=== PATIENT | male | born 1985 | race Caucasian/White ===

== ENCOUNTER 2018-05-26 13:33 | Inpatient (IN) | payer MEDICAID, OTHER ==
[~2018-05-26] VITALS: Ht 182.9 cm; Wt 80.6 kg
[2018-05-26] MEDS ORDERED: NALT50TA PO (14:04)
[2018-05-26] MEDS ORDERED: BENA20TA9 (14:04)
[2018-05-26] MEDS ORDERED: ALPR-624 (14:04)
[2018-05-26] MEDS ORDERED: ONDA4TAB6 PO (14:04)
[2018-05-26] MEDS ORDERED: normal saline 1000ML IV soln IVB ONE ×2 (14:15→16:35)
[2018-05-26] MEDS ORDERED: ondansetron/PF 4mg/2ml inj IV ONE (14:15)
[2018-05-26 14:25] LABS: BASOPHILS % (AUTO) 0.2 % (0-1); EOSINOPHILS # (AUTO) 0.1 X10'3 (0-0.9); EOSINOPHILS % (AUTO) 0.9 % (0-6); HEMATOCRIT 48.3 % (42.0-52.0); LYMPHOCYTES # (AUTO) 0.8 X10'3 (1.1-4.8); LYMPHOCYTES % (AUTO) 8.8 % (21-51); MEAN CORPUSCULAR HEMOGLOBIN 31.6 PG (27.0-31.0); MEAN CORPUSCULAR HGB CONC 35.2 % (33.0-36.5); MEAN CORPUSCULAR VOLUME 89.7 FL (78-98); MONOCYTES # (AUTO) 1.5 X10'3 (0-0.9); MONOCYTES % (AUTO) 16.5 % (2-12); NEUTROPHILS # (AUTO) 6.7 X10'3 (1.8-7.7); NEUTROPHILS % (AUTO) 73.6 % (42-75); PLATELET COUNT 238 X10'3 (140-440); RED BLOOD COUNT 5.38 X10'6 (4.70-6.10); RED CELL DISTRIBUTION WIDTH 15.5 % (11.5-14.5); WHITE BLOOD COUNT 9.1 X10'3 (4.5-11.0)
[2018-05-26 14:41] LABS: ALANINE AMINOTRANSFERASE 236 U/L (12-78); ALBUMIN 3.7 G/DL (3.4-5.0); ALBUMIN/GLOBULIN RATIO 0.7 (1.1-1.5); ALKALINE PHOSPHATASE 71 IU/L (46-116); ANION GAP 26 (8-16); ASPARTATE AMINO TRANSFERASE 92 U/L (10-37); BILIRUBIN,TOTAL 0.7 MG/DL (0.1-1.0); BLOOD UREA NITROGEN 75 MG/DL (7-18); BUN/CREATININE RATIO 5.6 (5.4-32.0); CALCIUM 8.9 MG/DL (8.5-10.1); CHLORIDE 78 MMOL/L (99-107); CREATININE 13.32 MG/DL (0.60-1.10); GLUCOSE 97 MG/DL (70-104); POTASSIUM 3.5 MMOL/L (3.5-5.1); SODIUM 123 MMOL/L (135-145); TOTAL CARBON DIOXIDE 19.4 MMOL/L (24-32); eGFR 4 ML/MIN
[2018-05-26 14:48] LABS: TOTAL CELLS COUNTED 100
[2018-05-26 14:49] LABS: PLATELET ESTIMATE NORMAL; TOXIC GRANULATION 1+
[2018-05-26 14:50] LABS: ETHANOL < 0.010 GM/DL (0.0-0.010)
[2018-05-26 14:53] LABS: CLARITY,URINE TURBID (Clear); COLOR,URINE AMBER (Yellow); GLUCOSE, URINE NEGATIVE (Neg); KETONES,URINE TRACE mg/dl (Neg); LEUKOCYTE ESTERASE ,URINE TRACE (Neg); OCCULT BLOOD,URINE LARGE (Neg); PROTEIN,URINE 100 mg/dl (Neg)
[2018-05-26 14:55] LABS: NITRITES, URINE NEGATIVE (Neg); UA COLLECTION TYPE CLN CATCH MIDSTREAM; URINE AMPHETAMINE SCREEN NEGATIVE (Neg); URINE BARBITUATE SCREEN NEGATIVE (Neg); URINE BENZODIAZEPINES SCREEN POSITIVE (Neg); URINE CANNABINOID SCREEN NEGATIVE (Neg); URINE COCAINE SCREEN NEGATIVE (Neg); URINE METHADONE SCREEN NEGATIVE (Neg); URINE OPIATE SCREEN NEGATIVE (Neg); URINE PHENCYCLIDINE SCREEN NEGATIVE (Neg)
[2018-05-26 15:01] LABS: LIPASE 2921 U/L (73-393)
[2018-05-26 15:01] LABS: COARSE GRANULAR CAST 0-3 /LPF (NEGATIVE); HYALINE CASTS 0-3 /LPF (NEGATIVE); MUCUS STRANDS FEW /LPF (Neg); SQUAMOUS EPITHELIAL CELL,UR NONE SEEN /LPF (FEW)
[2018-05-26 15:05] LABS: BACTERIA,URINE FEW /HPF (Neg); RBC,URINE 20-30 /HPF (0-2); WBC,URINE 20-30 /HPF (0-4)
[2018-05-26] MEDS ORDERED: piperacillin/tazo 3.375gm/50ml 50 ML IV ONE (15:07)
[2018-05-26 15:15] LABS: RENAL CELLS, URINE MANY /HPF; TRANSITIONAL EPI CELLS,URINE FEW /HPF
[2018-05-26 15:16] LABS: AMORPHOUS URATES 1+
[2018-05-26 17:31] LABS: MAGNESIUM 1.9 MG/DL (1.5-2.4); PHOSPHORUS 11.8 MG/DL (2.3-4.5)
[2018-05-26] MEDS ORDERED: HYDROcodone/acetaminophen 5mg/325mg tablet PO PRN (17:45)
[2018-05-26] MEDS ORDERED: mag hydrox/Alum hydrox/simeth 30ml oral suspension PO PRN (17:45)
[2018-05-26] MEDS ORDERED: HYDROcodone/acetaminophen 10/325mg tab PO PRN (17:45)
[2018-05-26] MEDS ORDERED: metoclopramide 5 mg/ml inj IV PRN (17:45)
[2018-05-26] MEDS ORDERED: diphenhydrAMINE 25mg capsule PO PRN (17:45)
[2018-05-26] MEDS ORDERED: morphine 4 MG/ML inj SYRINge IV PRN ×2 (17:45)
[2018-05-26] MEDS ORDERED: bisacodyl 10mg suppository rectal RC PRN (17:45)
[2018-05-26] MEDS ORDERED: acetaminophen 650mg rectal suppository RC PRN (17:45)
[2018-05-26] MEDS ORDERED: acetaminophen 325mg tablet PO PRN ×2 (17:45)
[2018-05-26] MEDS ORDERED: diphenhydrAMINE 50 mg/ml inj IV PRN (17:45)
[2018-05-26] MEDS ORDERED: magnesium hydroxide 30ml (MOM) UD suspension PO PRN (17:45)
[2018-05-26] MEDS ORDERED: HYDROmorphone 1 mg/ml syringe IV PRN ×2 (17:45)
[2018-05-26] MEDS ORDERED: ondansetron/PF 4mg/2ml inj IV PRN (17:45)
[2018-05-26] MEDS ORDERED: haloperidol 5mg tablet PO PRN ×2 (17:50)
[2018-05-26] MEDS ORDERED: thiamine inj. 100 MG in normal saline 100ml IV soln 100 ML IV ONE (17:50)
[2018-05-26] MEDS: normal saline 1000ml 1,000 ML IV SCH (18:54)
[2018-05-26 19:12] LABS: HEMOGLOBIN A1C 5.5 % (4.5-6.2)
[2018-05-26] MEDS: docusate sod 100mg capsule PO SCH (20:00)
[2018-05-26 21:00] VITALS: BP 133/73
[2018-05-26] MEDS ORDERED: temazepam 15mg capsule PO PRN (21:00)
[2018-05-26] MEDS: piperacillin-tazo 2.25gm/50ml 50 ML IV SCH (21:32)
[2018-05-26] MEDS: heparin, porcine 5000 units/ml vial SQ SCH (21:35)
[2018-05-26 23:00] VITALS: BP 115/63
[2018-05-27 03:00] VITALS: BP 119/88
[2018-05-27] MEDS: normal saline 1000ml 1,000 ML IV SCH ×3 (04:25→23:45)
[2018-05-27 05:51] LABS: INR 1.1 INR; PROTHROMBIN TIME 11.1 SECONDS (9.0-12.0)
[2018-05-27 05:55] LABS: BASOPHILS % (AUTO) 0.2 % (0-1); EOSINOPHILS # (AUTO) 0.1 X10'3 (0-0.9); EOSINOPHILS % (AUTO) 1.4 % (0-6); HEMATOCRIT 37.2 % (42.0-52.0); HEMOGLOBIN 13.4 g/dl (14.0-17.9); LYMPHOCYTES % (AUTO) 12.8 % (21-51); MONOCYTES # (AUTO) 1.4 X10'3 (0-0.9); MONOCYTES % (AUTO) 18.3 % (2-12); NEUTROPHILS # (AUTO) 5.1 X10'3 (1.8-7.7); NEUTROPHILS % (AUTO) 67.3 % (42-75); PLATELET COUNT 190 X10'3 (140-440); RED BLOOD COUNT 4.18 X10'6 (4.70-6.10); RED CELL DISTRIBUTION WIDTH 15.5 % (11.5-14.5); WHITE BLOOD COUNT 7.6 X10'3 (4.5-11.0)
[2018-05-27 06:00] VITALS: BP 135/81
[2018-05-27 06:06] LABS: ALANINE AMINOTRANSFERASE 164 U/L (12-78); ALBUMIN 2.8 G/DL (3.4-5.0); ALBUMIN/GLOBULIN RATIO 0.7 (1.1-1.5); ALKALINE PHOSPHATASE 51 IU/L (46-116); AMYLASE 109 U/L (25-115); ANION GAP 20 (8-16); ASPARTATE AMINO TRANSFERASE 63 U/L (10-37); BILIRUBIN,TOTAL 0.7 MG/DL (0.1-1.0); BLOOD UREA NITROGEN 78 MG/DL (7-18); BUN/CREATININE RATIO 8.5 (5.4-32.0); CALCIUM 7.7 MG/DL (8.5-10.1); CHLORIDE 93 MMOL/L (99-107); CHOL/HDL RATIO 7.3 (0.00-4.99); CHOLESTEROL 183 MG/DL (0-200); CREATININE 9.15 MG/DL (0.60-1.10); GLUCOSE 80 MG/DL (70-104); HDL CHOLESTEROL 25 MG/DL (35-60); LDL CHOLESTEROL 107 MG/DL (50-100); MAGNESIUM 1.7 MG/DL (1.5-2.4); PHOSPHORUS 7.3 MG/DL (2.3-4.5); POTASSIUM 3.1 MMOL/L (3.5-5.1); SODIUM 131 MMOL/L (135-145); TOTAL CARBON DIOXIDE 18.3 MMOL/L (24-32); TOTAL PROTEIN 6.8 G/DL (6.4-8.2); TRIGLYCERIDES 364 MG/DL (20-135); eGFR 7 ML/MIN
[2018-05-27 06:29] LABS: LIPASE 2842 U/L (73-393)
[2018-05-27] MEDS: piperacillin-tazo 2.25gm/50ml 50 ML IV SCH ×2 (07:28→20:00)
[2018-05-27] MEDS: pantoprazole 40mg Tablet.DR PO SCH (07:28)
[2018-05-27] MEDS: heparin, porcine 5000 units/ml vial SQ SCH ×2 (07:28→20:00)
[2018-05-27] MEDS: docusate sod 100mg capsule PO SCH (08:00)
[2018-05-27] MEDS: folic acid inj. 2 MG, thiamine inj. 100 MG, MVI, adult No.4 with vit. K 10 ML in dextro... IV SCH ×4 (08:51)
[2018-05-27] MEDS: LORazepam 2 mg/ml vial IV PRN ×2 (09:24→19:25)
[2018-05-27] MEDS ORDERED: BENA20TA9 PO (09:53)
[2018-05-27] MEDS ORDERED: ALPR-624 PO (09:53)
[2018-05-27 11:00] VITALS: BP 122/77
[2018-05-27] MEDS: docusate sod 250mg capsule PO SCH ×2 (11:50→20:00)
[2018-05-27] MEDS: calcium acetate 667mg (PhosLO) capsule PO SCH ×2 (12:47→17:28)
[2018-05-27 13:03] LABS: TOTAL PROTEIN,URINE RANDOM 46.2 MG/DL
[2018-05-27 13:06] LABS: CLARITY,URINE CLEAR (Clear); COLOR,URINE YELLOW (Yellow); GLUCOSE, URINE NEGATIVE (Neg); KETONES,URINE NEGATIVE (Neg); LEUKOCYTE ESTERASE ,URINE NEGATIVE (Neg); NITRITES, URINE NEGATIVE (Neg); OCCULT BLOOD,URINE LARGE (Neg); PH,URINE 5.5 (4.8-8.0); PROTEIN,URINE 30 mg/dl (Neg); UROBILINOGEN,URINE 0.2 E.U/dL (0.2-1.0)
[2018-05-27 13:26] LABS: UA COLLECTION TYPE NON-SPECIFIED
[2018-05-27 13:39] LABS: CREATINE KINASE 291 U/L (39-308)
[2018-05-27 13:49] LABS: WBC,URINE 0-4 /HPF (0-4)
[2018-05-27 13:50] LABS: BACTERIA,URINE FEW /HPF (Neg); COARSE GRANULAR CAST 0-3 /LPF (NEGATIVE); HYALINE CASTS 0-3 /LPF (NEGATIVE); SQUAMOUS EPITHELIAL CELL,UR FEW /LPF (FEW)
[2018-05-27] MEDS ORDERED: ALPR-385 PO (14:27)
[2018-05-27] MEDS ORDERED: BENA20TA2 PO (14:27)
[2018-05-27 15:00] VITALS: BP 100/67
[2018-05-27] MEDS ORDERED: potassium chloride 8mEq ER tablet PO ONE (15:55)
[2018-05-27 19:00] VITALS: BP 126/70
[2018-05-27] MEDS: lactobacillus rhamnosus 10,000 MMU CELLS/CAPSULE PO SCH (20:00)
[2018-05-27] MEDS ORDERED: non-formulary drug (Ondansetron Hcl (Zofran) 1 TAB) PO SCH (20:00)
[2018-05-27 23:00] VITALS: BP 130/53
[2018-05-28 03:00] VITALS: BP 116/64
[2018-05-28 04:33] LABS: BASOPHILS % (AUTO) 0.3 % (0-1); EOSINOPHILS # (AUTO) 0.1 X10'3 (0-0.9); HEMATOCRIT 36.3 % (42.0-52.0); LYMPHOCYTES % (AUTO) 15.4 % (21-51); MEAN CORPUSCULAR HGB CONC 35.8 % (33.0-36.5); MEAN CORPUSCULAR VOLUME 89.5 FL (78-98); MEAN PLATELET VOLUME 7.6 FL (7.4-10.4); MONOCYTES # (AUTO) 1.3 X10'3 (0-0.9); MONOCYTES % (AUTO) 21.5 % (2-12); NEUTROPHILS # (AUTO) 3.8 X10'3 (1.8-7.7); NEUTROPHILS % (AUTO) 60.8 % (42-75); PLATELET COUNT 211 X10'3 (140-440); RED BLOOD COUNT 4.05 X10'6 (4.70-6.10); RED CELL DISTRIBUTION WIDTH 15.3 % (11.5-14.5); WHITE BLOOD COUNT 6.3 X10'3 (4.5-11.0)
[2018-05-28 04:39] LABS: INR 1.1 INR; PROTHROMBIN TIME 11.4 SECONDS (9.0-12.0)
[2018-05-28 04:57] LABS: ALANINE AMINOTRANSFERASE 274 U/L (12-78); ALBUMIN 2.8 G/DL (3.4-5.0); ALBUMIN/GLOBULIN RATIO 0.7 (1.1-1.5); ALKALINE PHOSPHATASE 52 IU/L (46-116); AMYLASE 159 U/L (25-115); ANION GAP 11 (8-16); ASPARTATE AMINO TRANSFERASE 163 U/L (10-37); BILIRUBIN,TOTAL 0.9 MG/DL (0.1-1.0); BLOOD UREA NITROGEN 56 MG/DL (7-18); BUN/CREATININE RATIO 19.9 (5.4-32.0); CALCIUM 8.9 MG/DL (8.5-10.1); CHLORIDE 106 MMOL/L (99-107); CREATININE 2.81 MG/DL (0.60-1.10); GLUCOSE 89 MG/DL (70-104); MAGNESIUM 2.1 MG/DL (1.5-2.4); PHOSPHORUS 3.7 MG/DL (2.3-4.5); POTASSIUM 4.2 MMOL/L (3.5-5.1); SODIUM 140 MMOL/L (135-145); TOTAL CARBON DIOXIDE 23.5 MMOL/L (24-32); TOTAL PROTEIN 6.8 G/DL (6.4-8.2); eGFR 26 ML/MIN
[2018-05-28 06:23] LABS: LIPASE 3685 U/L (73-393)
[2018-05-28 06:30] VITALS: BP 118/69
[2018-05-28] MEDS: docusate sod 250mg capsule PO SCH ×2 (08:00→19:35)
[2018-05-28] MEDS: naltrexone 50mg tablet PO SCH (08:02)
[2018-05-28] MEDS: calcium acetate 667mg (PhosLO) capsule PO SCH ×2 (08:02→13:43)
[2018-05-28] MEDS: pantoprazole 40mg Tablet.DR PO SCH (08:03)
[2018-05-28] MEDS: heparin, porcine 5000 units/ml vial SQ SCH ×2 (08:03→19:29)
[2018-05-28] MEDS: piperacillin-tazo 2.25gm/50ml 50 ML IV SCH (08:03)
[2018-05-28] MEDS: lactobacillus rhamnosus 10,000 MMU CELLS/CAPSULE PO SCH ×2 (08:03→19:29)
[2018-05-28 08:26] LABS: PLATELET ESTIMATE NORMAL; TOTAL CELLS COUNTED 100
[2018-05-28] MEDS: folic acid inj. 2 MG, thiamine inj. 100 MG, MVI, adult No.4 with vit. K 10 ML in dextro... IV SCH ×4 (09:11)
[2018-05-28] MEDS: normal saline 1000ml 1,000 ML IV SCH ×2 (09:45→19:28)
[2018-05-28] MEDS: LORazepam 1 MG tablet PO PRN ×3 (10:27→19:29)
[2018-05-28] MEDS: nicotine 21mg patch - 24 hr TD SCH (10:27)
[2018-05-28 11:00] VITALS: BP 139/76
[2018-05-28 15:00] VITALS: BP 153/96
[2018-05-28 18:00] VITALS: BP 137/90
[2018-05-28 22:00] VITALS: BP 137/78
[2018-05-29] MEDS: LORazepam 1 MG tablet PO PRN ×2 (00:06→04:56)
[2018-05-29 02:00] VITALS: BP 117/68
[2018-05-29 04:52] LABS: BASOPHILS % (AUTO) 0.3 % (0-1); EOSINOPHILS # (AUTO) 0.1 X10'3 (0-0.9); EOSINOPHILS % (AUTO) 2.1 % (0-6); HEMATOCRIT 35.1 % (42.0-52.0); HEMOGLOBIN 12.3 g/dl (14.0-17.9); LYMPHOCYTES # (AUTO) 1.3 X10'3 (1.1-4.8); LYMPHOCYTES % (AUTO) 23.1 % (21-51); MEAN CORPUSCULAR HEMOGLOBIN 31.6 PG (27.0-31.0); MEAN CORPUSCULAR VOLUME 90.3 FL (78-98); MEAN PLATELET VOLUME 7.5 FL (7.4-10.4); MONOCYTES % (AUTO) 17.4 % (2-12); NEUTROPHILS # (AUTO) 3.3 X10'3 (1.8-7.7); NEUTROPHILS % (AUTO) 57.1 % (42-75); PLATELET COUNT 245 X10'3 (140-440); RED BLOOD COUNT 3.89 X10'6 (4.70-6.10); RED CELL DISTRIBUTION WIDTH 15.4 % (11.5-14.5); WHITE BLOOD COUNT 5.8 X10'3 (4.5-11.0)
[2018-05-29] MEDS: normal saline 1000ml 1,000 ML IV SCH (04:55)
[2018-05-29 05:18] LABS: ALANINE AMINOTRANSFERASE 280 U/L (12-78); ALBUMIN 2.7 G/DL (3.4-5.0); ALBUMIN/GLOBULIN RATIO 0.7 (1.1-1.5); ALKALINE PHOSPHATASE 47 IU/L (46-116); AMYLASE 166 U/L (25-115); ANION GAP 10 (8-16); ASPARTATE AMINO TRANSFERASE 140 U/L (10-37); BILIRUBIN,TOTAL 0.8 MG/DL (0.1-1.0); BLOOD UREA NITROGEN 33 MG/DL (7-18); BUN/CREATININE RATIO 23.7 (5.4-32.0); CALCIUM 8.7 MG/DL (8.5-10.1); CHLORIDE 110 MMOL/L (99-107); CREATININE 1.39 MG/DL (0.60-1.10); GLUCOSE 84 MG/DL (70-104); MAGNESIUM 1.9 MG/DL (1.5-2.4); PHOSPHORUS 2.7 MG/DL (2.3-4.5); SODIUM 145 MMOL/L (135-145); TOTAL CARBON DIOXIDE 24.7 MMOL/L (24-32); TOTAL PROTEIN 6.4 G/DL (6.4-8.2); eGFR 58 ML/MIN
[2018-05-29 05:48] LABS: LIPASE 2954 U/L (73-393)
[2018-05-29 06:00] VITALS: BP 139/86
[2018-05-29] MEDS: docusate sod 250mg capsule PO SCH (06:45)
[2018-05-29] MEDS: naltrexone 50mg tablet PO SCH (07:38)
[2018-05-29] MEDS: nicotine 21mg patch - 24 hr TD SCH (07:38)
[2018-05-29] MEDS: lactobacillus rhamnosus 10,000 MMU CELLS/CAPSULE PO SCH (07:39)
[2018-05-29] MEDS: pantoprazole 40mg Tablet.DR PO SCH (07:40)
[2018-05-29] MEDS: heparin, porcine 5000 units/ml vial SQ SCH (07:42)
[2018-05-29] MEDS ORDERED: thiamine 100mg tablet PO SCH (08:00)
[2018-05-29] MEDS ORDERED: folic acid 1mg tablet PO SCH (08:00)
[2018-05-29] MEDS ORDERED: multivitamins, therapeutics tablet PO SCH (08:00)
[2018-05-29 11:00] VITALS: BP 143/79
[2018-05-29] MEDS ORDERED: FOLI1TAB16 PO (13:29)
[2018-05-29] MEDS ORDERED: PANT40TA4 PO (13:29)
[2018-05-29] MEDS ORDERED: THI100T PO (13:29)
== END 2018-05-29 15:00 | disposition home or self-care (01) | DRG 469 ==
LOC: ER 13:34 → ED HOLD 17:45 → PCU 3S 20:20
PROVIDERS: ADMIT Family Medicine; ATTEND Internal Medicine
DX: N17.9 Acute kidney failure, unspecified (principal); M62.82 Rhabdomyolysis; K85.20 Alcohol induced acute pancreatitis without necrosis or infection; K70.10 Alcoholic hepatitis without ascites; E87.1 Hypo-osmolality and hyponatremia; E86.0 Dehydration; F17.200 Nicotine dependence, unspecified, uncomplicated; F10.20 Alcohol dependence, uncomplicated; Y90.0 Blood alcohol level of less than 20 mg/100 ml; I10 Essential (primary) hypertension; E86.1 Hypovolemia; K52.9 Noninfective gastroenteritis and colitis, unspecified; N39.0 Urinary tract infection, site not specified; E87.6 Hypokalemia; Z88.0 Allergy status to penicillin
CPT/HCPCS: 36415; 74176; 80053; 80061; 80305; 80320; 81001; 82150; 82550; 82570; 83036; 83605; 83690; 83735; 83880; 84100; 84133; 84156; 84300; 84443; 85025; 85610; 87040; 87070; 87088; 96361; 96365; 96366; 96375; 99291; A6250; J1644; J2060; J2405; J2543; J3411; J3490; J7030; J7060

== ENCOUNTER 2021-04-10 14:44 | Inpatient (IN) | payer MEDICAID, OTHER ==
[~2021-04-10] VITALS: Ht 182.9 cm; Wt 79.5 kg
[~2021-04-10 14:44] MED LIST: ALPR-385 PO; FOLI1TAB16 PO; NALT50TA PO; PANT40TA54 PO; THI100T PO
[2021-04-10 15:16] LABS: HEMATOCRIT 43.8 % (42.0-52.0); HEMOGLOBIN 14.9 g/dl (14.0-17.9); MEAN CORPUSCULAR HEMOGLOBIN 35.1 PG (27.0-31.0); MEAN CORPUSCULAR VOLUME 103.3 FL (78-98); PLATELET COUNT 167 X10'3 (140-440); RED BLOOD COUNT 4.24 X10'6 (4.70-6.10); RED CELL DISTRIBUTION WIDTH 15.6 % (11.5-14.5); WHITE BLOOD COUNT 7.1 X10'3 (4.5-11.0)
[2021-04-10 15:39] LABS: TOTAL CELLS COUNTED 100
[2021-04-10 15:40] LABS: PLATELET ESTIMATE NORMAL
[2021-04-10 15:45] LABS: ALKALINE PHOSPHATASE 334 IU/L (46-116); ANION GAP 12 (8-16); BILIRUBIN,TOTAL 16.8 MG/DL (0.1-1.0); BLOOD UREA NITROGEN 16 MG/DL (7-18); BUN/CREATININE RATIO 18.2 (5.4-32.0); CALCIUM 8.1 MG/DL (8.5-10.1); CREATININE 0.88 MG/DL (0.60-1.10); ETHANOL < 0.010 GM/DL (0.0-0.010); eGFR > 90 ML/MIN
[2021-04-10 15:52] LABS: ACETAMINOPHEN < 2.0 UG/ML (10-30)
[2021-04-10 16:21] LABS: GLUCOSE 125 MG/DL (70-104); POTASSIUM 3.3 MMOL/L (3.5-5.1); TOTAL CARBON DIOXIDE 25.4 MMOL/L (24-32); TOTAL PROTEIN 5.6 G/DL (6.4-8.2)
[2021-04-10 16:23] LABS: CLARITY,URINE CLOUDY (Clear); COLOR,URINE AMBER (Yellow)
[2021-04-10 16:24] LABS: UA COLLECTION TYPE CLN CATCH MIDSTREAM
[2021-04-10 16:30] LABS: MUCUS STRANDS MANY /LPF (Neg); SQUAMOUS EPITHELIAL CELL,UR FEW /LPF (FEW)
[2021-04-10 16:31] LABS: RENAL CELLS, URINE MANY /HPF; TRANSITIONAL EPI CELLS,URINE MODERATE /HPF
[2021-04-10 16:32] LABS: CHLORIDE 87 MMOL/L (99-107); SODIUM 123 MMOL/L (135-145)
[2021-04-10 16:32] LABS: CELLULAR CAST 0-4 /LPF (NEGATIVE); COARSE GRANULAR CAST 0-3 /LPF (NEGATIVE)
[2021-04-10 16:33] LABS: FINE GRANULAR CAST 0-3 /LPF (NEGATIVE)
[2021-04-10 16:34] LABS: WBC,URINE 0-4 /HPF (0-4)
[2021-04-10 16:35] LABS: BACTERIA,URINE FEW /HPF (Neg)
[2021-04-10 16:46] LABS: ALBUMIN 2.1 G/DL (3.4-5.0); ALBUMIN/GLOBULIN RATIO 0.6 (1.1-1.5)
[2021-04-10 16:49] LABS: ALANINE AMINOTRANSFERASE 157 U/L (12-78); ASPARTATE AMINO TRANSFERASE 233 U/L (10-37)
--- NOTE | 2021-04-10 17:00 | NUR ---
Informed ER doctor patient has elevated B/P has not taken his blood pressure medications for 4 days. Potassium is 3.3 requested replacement.
[2021-04-10] MEDS ORDERED: potassium Cl 20 mEq SR tablet PO STA (17:16)
--- NOTE | 2021-04-10 17:17 | NUR ---
PARESH GILBERT PT'S MOTHER [phone]
[2021-04-10] MEDS ORDERED: normal saline 1000ml 1,000 ML IV ONE (17:20)
[2021-04-10] MEDS ORDERED: OMEP-50 PO (17:38)
[2021-04-10] MEDS ORDERED: BENA10TA75 PO (17:38)
[2021-04-10] MEDS ORDERED: HYDR50TA65 PO (17:38)
[2021-04-10] MEDS ORDERED: potassium Cl 40MEQ/1/2NS 520ml 520 ML IV PRN ×2 (17:50)
[2021-04-10] MEDS ORDERED: LORazepam 2 mg/ml vial IV PRN (17:50)
[2021-04-10] MEDS ORDERED: haloperidol lactate 5mg/ml inj IM PRN (17:50)
[2021-04-10] MEDS ORDERED: thiamine 100mg/ml 2ml inj. IV ONE (17:50)
[2021-04-10] MEDS ORDERED: magnesium 4gm in 100ml NS 100 ML IV PRN (17:50)
[2021-04-10] MEDS ORDERED: dextrose 50%-water 50ml dispensing syringe IV PRN (17:50)
[2021-04-10] MEDS ORDERED: morphine 2 MG/ML inj. syringe IV PRN ×2 (17:50)
[2021-04-10] MEDS ORDERED: potassium Cl 20 mEq SR tablet PO PRN ×2 (17:50)
[2021-04-10] MEDS ORDERED: acetaminophen 325mg tablet PO PRN (17:50)
[2021-04-10] MEDS ORDERED: LORazepam 1 MG tablet PO PRN (17:50)
[2021-04-10] MEDS ORDERED: mag hydrox/Alum hydrox/simeth 30ml oral suspension PO PRN (17:50)
[2021-04-10] MEDS ORDERED: haloperidol 5mg tablet PO PRN (17:50)
[2021-04-10] MEDS ORDERED: ondansetron/PF 4mg/2ml inj IV PRN (17:50)
[2021-04-10] MEDS ORDERED: magnesium 2GM in 50ml NS 50 ML IV PRN (17:50)
[2021-04-10] MEDS ORDERED: magnesium Cl slow-release 64mg tablet PO PRN (17:50)
[2021-04-10] MEDS ORDERED: magnesium hydroxide 30ml (MOM) UD suspension PO PRN (17:50)
--- NOTE | 2021-04-10 17:59 | NUR ---
Patient's Mother Leonie Kendrick [phone] Father Ambrocio Andrews Sr. [phone] Only wants family to have information. No one else
[2021-04-10] MEDS: normal saline 1000ml 1,000 ML IV SCH (18:34)
[2021-04-10 18:44] LABS: AMYLASE 37 U/L (25-115); HDL CHOLESTEROL 12 MG/DL (35-60); LIPASE 630 U/L (73-393)
[2021-04-10 18:46] LABS: LDL CHOLESTEROL 757 MG/DL (50-100); TRIGLYCERIDES 1737 MG/DL (20-135)
[2021-04-10] MEDS: K and/or MAG REPLACEMENT MC SCH (20:06)
[2021-04-10] MEDS: lisinopril 5mg tablet PO SCH (20:07)
--- NOTE | 2021-04-10 20:11 | NUR ---
Patient ambulatory to and from bathroom with steady gait. States still feels slightly dizzy.
[2021-04-10 20:15] LABS: CHOL/HDL RATIO 67.5 (0.00-4.99); CHOLESTEROL 810 MG/DL (0-200)
[2021-04-10] MEDS: diatr meglu/diatrizoate 30ml oral sol.-(3 dose) bottle PO SCH (21:16)
--- NOTE | 2021-04-11 01:27 | NUR ---
Patient ambulatory to and from bathroom with steady gait.
[2021-04-11 03:27] LABS: RED BLOOD COUNT 3.72 X10'6 (4.70-6.10); WHITE BLOOD COUNT 5.6 X10'3 (4.5-11.0)
[2021-04-11 03:28] LABS: HEMATOCRIT 38.4 % (42.0-52.0); MEAN CORPUSCULAR HEMOGLOBIN 34.8 PG (27.0-31.0); MEAN CORPUSCULAR HGB CONC 33.8 g/dL (33.0-36.5); MEAN CORPUSCULAR VOLUME 103.1 FL (78-98); PLATELET COUNT 125 X10'3 (140-440); RED CELL DISTRIBUTION WIDTH 15.5 % (11.5-14.5)
[2021-04-11 03:44] LABS: ALBUMIN 1.8 G/DL (3.4-5.0); ALKALINE PHOSPHATASE 288 IU/L (46-116); ANION GAP 8 (8-16); BILIRUBIN,TOTAL 15.9 MG/DL (0.1-1.0); BLOOD UREA NITROGEN 13 MG/DL (7-18); BUN/CREATININE RATIO 17.1 (5.4-32.0); CALCIUM 8.1 MG/DL (8.5-10.1); CHLORIDE 93 MMOL/L (99-107); CREATININE 0.76 MG/DL (0.60-1.10); MAGNESIUM 1.6 MG/DL (1.5-2.4); SODIUM 127 MMOL/L (135-145); eGFR > 90 ML/MIN
[2021-04-11 04:05] LABS: ALANINE AMINOTRANSFERASE 114 U/L (12-78); ASPARTATE AMINO TRANSFERASE 188 U/L (10-37)
[2021-04-11 04:10] LABS: ALBUMIN/GLOBULIN RATIO 0.6 (1.1-1.5); GLUCOSE 100 MG/DL (70-104); POTASSIUM 3.8 MMOL/L (3.5-5.1); TOTAL PROTEIN 4.9 G/DL (6.4-8.2)
[2021-04-11 04:37] LABS: PLATELET ESTIMATE DECREASED; TOTAL CELLS COUNTED 100
[2021-04-11 04:38] LABS: STOMATOCYTES 3+
[2021-04-11] MEDS: normal saline 1000ml 1,000 ML IV SCH ×3 (05:00→20:35)
[2021-04-11] MEDS: diatr meglu/diatrizoate 30ml oral sol.-(3 dose) bottle PO SCH ×2 (07:22→09:57)
--- NOTE | 2021-04-11 07:42 | NUR ---
REPORT ATTEMPTED, ASSIGNED RN EARL CURRENTLY UNAVAILABLE.
[2021-04-11 07:55] LABS: PARTIAL THROMBOPLASTIN TIME 30 SECONDS (22-32)
[2021-04-11] MEDS: K and/or MAG REPLACEMENT MC SCH ×2 (08:00→20:00)
[2021-04-11] MEDS: folic acid 1mg tablet PO SCH (08:44)
[2021-04-11] MEDS: atorvastatin 20mg tablet PO SCH (08:44)
[2021-04-11] MEDS: thiamine 100mg tablet PO SCH (08:45)
[2021-04-11] MEDS: multivitamins, therapeutics tablet PO SCH (08:45)
[2021-04-11 09:47] VITALS: BP 157/100
[2021-04-11] MEDS ORDERED: iohexol 300mg/ml 100ml inj. ONE (09:50)
[2021-04-11] MEDS ORDERED: sincalide inj 1.6 MCG in normal saline 100ml IV soln 100 ML IV PRN (12:45)
[2021-04-11 18:00] VITALS: BP 131/91
--- NOTE | 2021-04-11 18:30 | NUR ---
gave report to regis robledo
[2021-04-11] MEDS ORDERED: zolpidem 5mg tablet PO PRN (20:30)
[2021-04-11] MEDS: lisinopril 5mg tablet PO SCH (20:36)
[2021-04-11 22:00] VITALS: BP 140/84
[2021-04-12 06:00] VITALS: BP 134/96
--- NOTE | 2021-04-12 06:15 | NUR ---
received report from regis robledo
[2021-04-12 06:38] LABS: MEAN PLATELET VOLUME 8.9 FL (7.4-10.4); PLATELET COUNT 149 X10'3 (140-440); WHITE BLOOD COUNT 5.9 X10'3 (4.5-11.0)
[2021-04-12 06:40] LABS: HEMATOCRIT 36.6 % (42.0-52.0); HEMOGLOBIN 12.5 g/dl (14.0-17.9); MEAN CORPUSCULAR HEMOGLOBIN 35.1 PG (27.0-31.0); MEAN CORPUSCULAR VOLUME 103.3 FL (78-98); RED BLOOD COUNT 3.55 X10'6 (4.70-6.10); RED CELL DISTRIBUTION WIDTH 15.1 % (11.5-14.5)
[2021-04-12 06:46] LABS: PARTIAL THROMBOPLASTIN TIME 26 SECONDS (22-32)
[2021-04-12 07:08] LABS: ALANINE AMINOTRANSFERASE 143 U/L (12-78); ALBUMIN 1.8 G/DL (3.4-5.0); ALKALINE PHOSPHATASE 305 IU/L (46-116); ANION GAP 9 (8-16); BILIRUBIN,TOTAL 20.3 MG/DL (0.1-1.0); BLOOD UREA NITROGEN 10 MG/DL (7-18); CHLORIDE 94 MMOL/L (99-107); MAGNESIUM 1.8 MG/DL (1.5-2.4); SODIUM 128 MMOL/L (135-145); TOTAL CARBON DIOXIDE 25.2 MMOL/L (24-32)
[2021-04-12 07:11] LABS: ALBUMIN/GLOBULIN RATIO 0.6 (1.1-1.5); ASPARTATE AMINO TRANSFERASE 226 U/L (10-37); BUN/CREATININE RATIO 13.9 (5.4-32.0); CREATININE 0.72 MG/DL (0.60-1.10); GLUCOSE 88 MG/DL (70-104); POTASSIUM 3.7 MMOL/L (3.5-5.1); TOTAL PROTEIN 4.9 G/DL (6.4-8.2); eGFR > 90 ML/MIN
[2021-04-12 07:24] LABS: TOTAL CELLS COUNTED 100
[2021-04-12 07:25] LABS: PLATELET ESTIMATE NORMAL
[2021-04-12 07:26] LABS: ANISOCYTOSIS 1+; SPHEROCYTES 1+; TARGET CELLS 2+
[2021-04-12 07:27] LABS: LARGE PLATELETS FEW; SCHISTOCYTES FEW
[2021-04-12] MEDS: K and/or MAG REPLACEMENT MC SCH (08:00)
[2021-04-12] MEDS: atorvastatin 20mg tablet PO SCH (08:01)
[2021-04-12] MEDS: folic acid 1mg tablet PO SCH (08:01)
[2021-04-12] MEDS: multivitamins, therapeutics tablet PO SCH (08:02)
[2021-04-12] MEDS: thiamine 100mg tablet PO SCH (08:02)
[2021-04-12 10:00] VITALS: BP 132/91
[2021-04-12] MEDS ORDERED: MEP5T PO (10:38)
[2021-04-12] MEDS ORDERED: MULT-25 PO (10:38)
[2021-04-12] MEDS ORDERED: thiamine tablet PO (10:38)
[2021-04-12] MEDS ORDERED: folic acid tablet PO (10:38)
--- NOTE | 2021-04-12 11:05 | NUR ---
pt d/c with instructions, understanding of instructions and w/all belongings walking out to private vehicle to go home and f/u w/pcp
[2021-04-12 15:48] LABS: HBSAG SCREEN Negative (Negative); HEP A AB, IGM Negative (Negative); HEPATITIS C ANTIBODY <0.1 s/co ratio (0.0-0.9)
== END 2021-04-12 11:05 | disposition home or self-care (01) | DRG 442 ==
LOC: ER 14:45 → ED HOLD 17:46 → ORTHO 4S 04-11 08:20
PROVIDERS: ADMIT Family Medicine; ATTEND Family Medicine
DX: B17.9 Acute viral hepatitis, unspecified (principal); E72.20 Disorder of urea cycle metabolism, unspecified; E87.1 Hypo-osmolality and hyponatremia; D69.6 Thrombocytopenia, unspecified; E78.1 Pure hyperglyceridemia; E78.5 Hyperlipidemia, unspecified; E87.6 Hypokalemia; E88.09 Other disorders of plasma-protein metabolism, not elsewhere classified; F10.20 Alcohol dependence, uncomplicated; F41.9 Anxiety disorder, unspecified; I10 Essential (primary) hypertension; I16.0 Hypertensive urgency; K76.0 Fatty (change of) liver, not elsewhere classified; K82.8 Other specified diseases of gallbladder; T38.0X5A Adverse effect of glucocorticoids and synthetic analogues, initial encounter; Z72.0 Tobacco use; Z88.0 Allergy status to penicillin
CPT/HCPCS: 36415; 71045; 74178; 76700; 78226; 80053; 80061; 80074; 80320; 80329; 81001; 82140; 82150; 82948; 83690; 83735; 83880; 84132; 84484; 85007; 85025; 85610; 85730; 87081; 93005; 99285; A9537; G0378; J2060; J3411; J7030; Q9963; Q9967

== ENCOUNTER 2021-04-24 14:31 | Emergency (ER) | payer OTHER ==
[~2021-04-24] VITALS: Ht 182.9 cm; Wt 70.0 kg
[~2021-04-24 14:31] MED LIST changes: -ALPR-385 PO; +BENA10TA75 PO; -FOLI1TAB16 PO; +HYDR50TA65 PO; +MEP5T PO; +MULT-25 PO; -NALT50TA PO; +OMEP-50 PO; -PANT40TA54 PO; -THI100T PO; +folic acid tablet PO; +thiamine tablet PO
[2021-04-24 16:24] LABS: HEMATOCRIT 28.1 % (42.0-52.0); HEMOGLOBIN 9.7 g/dl (14.0-17.9); MEAN CORPUSCULAR HEMOGLOBIN 35.2 PG (27.0-31.0); MEAN CORPUSCULAR HGB CONC 34.7 g/dL (33.0-36.5); MEAN CORPUSCULAR VOLUME 101.4 FL (78-98); MEAN PLATELET VOLUME 7.1 FL (7.4-10.4); PLATELET COUNT 831 X10'3 (140-440); RED BLOOD COUNT 2.77 X10'6 (4.70-6.10); RED CELL DISTRIBUTION WIDTH 14.5 % (11.5-14.5)
[2021-04-24 16:28] LABS: ALANINE AMINOTRANSFERASE 143 U/L (12-78); ALBUMIN 2.6 G/DL (3.4-5.0); ALKALINE PHOSPHATASE 264 IU/L (46-116); ANION GAP 9 (8-16); ASPARTATE AMINO TRANSFERASE 118 U/L (10-37); BILIRUBIN,TOTAL 6.3 MG/DL (0.1-1.0); BLOOD UREA NITROGEN 8 MG/DL (7-18); BUN/CREATININE RATIO 10.4 (5.4-32.0); CHLORIDE 99 MMOL/L (99-107); CREATININE 0.77 MG/DL (0.60-1.10); GLUCOSE 105 MG/DL (70-104); POTASSIUM 3.9 MMOL/L (3.5-5.1); SODIUM 134 MMOL/L (135-145); TOTAL CARBON DIOXIDE 25.8 MMOL/L (24-32); eGFR > 90 ML/MIN
[2021-04-24 16:31] LABS: WHITE BLOOD COUNT 10.4 X10'3 (4.5-11.0)
[2021-04-24 16:35] LABS: PLATELET ESTIMATE INCREASED; TOTAL CELLS COUNTED 100
[2021-04-24 16:36] LABS: POLYCHROMASIA 1+
[2021-04-24 16:38] LABS: ROULEAUX 1+; SPHEROCYTES FEW; STOMATOCYTES 1+
[2021-04-24 16:46] LABS: ALBUMIN/GLOBULIN RATIO 0.6 (1.1-1.5); TOTAL PROTEIN 7.3 G/DL (6.4-8.2)
[2021-04-24 16:56] LABS: PARTIAL THROMBOPLASTIN TIME 26 SECONDS (22-32)
[2021-04-24] MEDS ORDERED: folic acid/vitamin B complex w/vitamin C 0.8mg tablet PO ONE (17:50)
[2021-04-24 18:24] VITALS: BP 115/74
== END 2021-04-24 18:26 | disposition home or self-care (01) ==
LOC: ER 14:32
DX: D53.9 Nutritional anemia, unspecified (principal); E80.6 Other disorders of bilirubin metabolism; R42 Dizziness and giddiness; R51.9 Headache, unspecified; R11.0 Nausea; I10 Essential (primary) hypertension; F17.220 Nicotine dependence, chewing tobacco, uncomplicated; Z72.89 Other problems related to lifestyle; Z79.899 Other long term (current) drug therapy
CPT/HCPCS: 36415; 71045; 80053; 82140; 82607; 83880; 85007; 85025; 85610; 85730; 99284

== ENCOUNTER 2021-09-27 20:10 | Inpatient (IN) | payer MEDICAID ==
[~2021-09-27] VITALS: Ht 182.9 cm; Wt 79.5 kg
[2021-09-27 21:24] LABS: BASOPHILS % (AUTO) 0.4 % (0-1); EOSINOPHILS % (AUTO) 0 % (0-6); HEMATOCRIT 37.3 % (42.0-52.0); HEMOGLOBIN 13.3 g/dl (14.0-17.9); LYMPHOCYTES # (AUTO) 0.5 X10'3 (1.1-4.8); LYMPHOCYTES % (AUTO) 8.6 % (21-51); MEAN CORPUSCULAR HEMOGLOBIN 30.2 PG (27.0-31.0); MEAN CORPUSCULAR HGB CONC 35.5 g/dL (33.0-36.5); MEAN PLATELET VOLUME 8.2 FL (7.4-10.4); MONOCYTES # (AUTO) 0.6 X10'3 (0-0.9); MONOCYTES % (AUTO) 10.2 % (2-12); NEUTROPHILS # (AUTO) 4.7 X10'3 (1.8-7.7); NEUTROPHILS % (AUTO) 80.8 % (42-75); PLATELET COUNT 96 X10'3 (140-440); RED BLOOD COUNT 4.39 X10'6 (4.70-6.10); RED CELL DISTRIBUTION WIDTH 13.8 % (11.5-14.5); WHITE BLOOD COUNT 5.8 X10'3 (4.5-11.0)
[2021-09-27 21:33] LABS: ALANINE AMINOTRANSFERASE 218 U/L (12-78); ALBUMIN 3.5 G/DL (3.4-5.0); ALBUMIN/GLOBULIN RATIO 0.8 (1.1-1.5); ALKALINE PHOSPHATASE 81 IU/L (46-116); ANION GAP 21 (8-16); ASPARTATE AMINO TRANSFERASE 267 U/L (10-37); BILIRUBIN,TOTAL 2.8 MG/DL (0.1-1.0); BLOOD UREA NITROGEN 24 MG/DL (7-18); BUN/CREATININE RATIO 22.6 (5.4-32.0); CALCIUM 9.4 MG/DL (8.5-10.1); CHLORIDE 82 MMOL/L (99-107); CREATININE 1.06 MG/DL (0.60-1.10); GLUCOSE 124 MG/DL (70-104); LIPASE 764 U/L (73-393); POTASSIUM 3.4 MMOL/L (3.5-5.1); SODIUM 127 MMOL/L (135-145); TOTAL CARBON DIOXIDE 24.4 MMOL/L (24-32); TOTAL PROTEIN 7.7 G/DL (6.4-8.2); eGFR 78 ML/MIN
[2021-09-27 22:02] LABS: LARGE PLATELETS FEW; PLATELET ESTIMATE DECREASED
[2021-09-27] MEDS ORDERED: magnesium oxide 400mg tablet PO ONE (22:20)
[2021-09-27] MEDS ORDERED: thiamine 100mg tablet PO ONE (22:20)
[2021-09-27] MEDS ORDERED: famotidine/PF 10 mg/ml inj IV ONE (22:20)
[2021-09-27] MEDS ORDERED: phenobarbital inj 260 MG in normal saline 100ml IV soln 100 ML IV ONE (22:20)
[2021-09-27] MEDS ORDERED: octreotide inj. 1,250 MCG in normal saline 250ml IV soln 243.75 ML IV ONE (22:20)
[2021-09-27] MEDS ORDERED: ondansetron/PF 4mg/2ml inj IV ONE (22:20)
[2021-09-27] MEDS ORDERED: normal saline 1000ML IV soln IV ONE (22:20)
[2021-09-27] MEDS ORDERED: pantoprazole IV 40 MG in normal saline 100ml IV soln 100 ML IV ONE (22:23)
[2021-09-27] MEDS ORDERED: pantoprazole 40MG/NS 100ML BAG 100 ML IV ONE (22:25)
[2021-09-27 22:34] LABS: ETHANOL < 0.010 GM/DL (0.0-0.010); MAGNESIUM 1.8 MG/DL (1.5-2.4)
[2021-09-27 22:39] LABS: BASOPHILS % (AUTO) 0.2 % (0-1); EOSINOPHILS % (AUTO) 0 % (0-6); HEMATOCRIT 36.5 % (42.0-52.0); LYMPHOCYTES # (AUTO) 0.5 X10'3 (1.1-4.8); LYMPHOCYTES % (AUTO) 7.8 % (21-51); MEAN CORPUSCULAR HEMOGLOBIN 30.1 PG (27.0-31.0); MEAN CORPUSCULAR HGB CONC 35.7 g/dL (33.0-36.5); MEAN CORPUSCULAR VOLUME 84.2 FL (78-98); MEAN PLATELET VOLUME 8.1 FL (7.4-10.4); MONOCYTES # (AUTO) 0.9 X10'3 (0-0.9); MONOCYTES % (AUTO) 14.1 % (2-12); NEUTROPHILS % (AUTO) 77.9 % (42-75); PLATELET COUNT 95 X10'3 (140-440); RED BLOOD COUNT 4.33 X10'6 (4.70-6.10); RED CELL DISTRIBUTION WIDTH 13.7 % (11.5-14.5); WHITE BLOOD COUNT 6.4 X10'3 (4.5-11.0)
[2021-09-27 22:41] LABS: PARTIAL THROMBOPLASTIN TIME 25 SECONDS (22-32)
[2021-09-27 23:12] LABS: LARGE PLATELETS FEW; PLATELET ESTIMATE DECREASED
[2021-09-27] MEDS ORDERED: phenobarbital inj 130 MG in normal saline 100ml IV soln 100 ML IV ONE (23:20)
[2021-09-28] MEDS ORDERED: dextrose 50%-water 50ml dispensing syringe IV PRN (00:20)
[2021-09-28] MEDS ORDERED: acetaminophen 650mg rectal suppository RC PRN (00:20)
[2021-09-28] MEDS ORDERED: magnesium hydroxide 30ml (MOM) UD suspension PO PRN (00:20)
[2021-09-28] MEDS ORDERED: ondansetron 4mg rapidly disintigrating tab PO PRN (00:20)
[2021-09-28] MEDS ORDERED: potassium CL 10mEq/100ml bag 100 ML IV PRN (00:20)
[2021-09-28] MEDS ORDERED: potassium Cl 20 mEq SR tablet PO PRN ×2 (00:20)
[2021-09-28] MEDS ORDERED: magnesium 4gm in 100ml NS 100 ML IV PRN (00:20)
[2021-09-28] MEDS ORDERED: acetaminophen 325mg tablet PO PRN ×2 (00:20)
[2021-09-28] MEDS ORDERED: HYDROmorphone inj. 0.5 MG/0.5 ML DISP.SYRIN IV PRN (00:20)
[2021-09-28] MEDS ORDERED: HYDROcodone/acetaminophen 10/325mg tab PO PRN (00:20)
[2021-09-28] MEDS ORDERED: haloperidol 5mg tablet PO PRN (00:20)
[2021-09-28] MEDS ORDERED: morphine 2 MG/ML inj. syringe IV PRN ×2 (00:20)
[2021-09-28] MEDS ORDERED: potassium Cl 20mEq in NS 1,000 ML IV SCH (00:20)
[2021-09-28] MEDS ORDERED: diphenhydrAMINE 25mg capsule PO PRN (00:20)
[2021-09-28] MEDS ORDERED: mag hydrox/Alum hydrox/simeth 30ml oral suspension PO PRN (00:20)
[2021-09-28] MEDS ORDERED: magnesium Cl slow-release 64mg tablet PO PRN (00:20)
[2021-09-28] MEDS ORDERED: haloperidol lactate 5mg/ml inj IM PRN (00:20)
[2021-09-28] MEDS ORDERED: diphenhydrAMINE 50 mg/ml inj IV PRN (00:20)
[2021-09-28] MEDS ORDERED: ondansetron/PF 4mg/2ml inj IV PRN (00:20)
[2021-09-28] MEDS ORDERED: magnesium 2GM in 50ml NS 50 ML IV PRN (00:20)
[2021-09-28] MEDS ORDERED: HYDROmorphone/PF 0.2 MG/ML SYRINGE IV PRN (00:20)
[2021-09-28] MEDS ORDERED: HYDROcodone/acetaminophen 5mg/325mg tablet PO PRN (00:20)
[2021-09-28] MEDS ORDERED: LORazepam 2 mg/ml vial IV PRN (00:20)
[2021-09-28] MEDS ORDERED: bisacodyl 10mg suppository rectal RC PRN (00:20)
[2021-09-28 01:00] VITALS: BP 154/100
[2021-09-28] MEDS ORDERED: pantoprazole 40MG/NS 100ML BAG 100 ML IV ONE (01:00)
[2021-09-28] MEDS ORDERED: pantoprazole 40MG/NS 100ML BAG 100 ML IV SCH (01:00)
[2021-09-28 01:16] LABS: MAGNESIUM 1.7 MG/DL (1.5-2.4); PHOSPHORUS 3.2 MG/DL (2.3-4.5); POTASSIUM 3.8 MMOL/L (3.5-5.1)
[2021-09-28 01:39] LABS: HEMOGLOBIN A1C 5.4 % (4.5-6.2)
[2021-09-28] MEDS ORDERED: NO HOME MEDS (01:54)
[2021-09-28 02:08] LABS: CLARITY,URINE CLEAR (Clear); COLOR,URINE YELLOW (Yellow); GLUCOSE, URINE NEGATIVE (Neg); KETONES,URINE >=80 mg/dl (Neg); LEUKOCYTE ESTERASE ,URINE NEGATIVE (Neg); NITRITES, URINE NEGATIVE (Neg); OCCULT BLOOD,URINE LARGE (Neg); PROTEIN,URINE 100 mg/dl (Neg)
[2021-09-28 02:08] LABS: OCCULT BLOOD STOOL POSITIVE (Neg)
[2021-09-28 02:11] LABS: UA COLLECTION TYPE URINAL
[2021-09-28 02:16] LABS: HYALINE CASTS 0-3 /LPF (NEGATIVE)
[2021-09-28 02:17] LABS: FINE GRANULAR CAST 0-3 /LPF (NEGATIVE); MUCUS STRANDS FEW /LPF (Neg); SQUAMOUS EPITHELIAL CELL,UR FEW /LPF (FEW)
[2021-09-28 02:18] LABS: BACTERIA,URINE 1+ /HPF (Neg); WBC,URINE 0-4 /HPF (0-4)
[2021-09-28 02:27] LABS: URINE AMPHETAMINE SCREEN NEGATIVE (Neg); URINE BARBITUATE SCREEN POSITIVE (Neg); URINE BENZODIAZEPINES SCREEN NEGATIVE (Neg); URINE CANNABINOID SCREEN NEGATIVE (Neg); URINE COCAINE SCREEN NEGATIVE (Neg); URINE METHADONE SCREEN NEGATIVE (Neg); URINE OPIATE SCREEN NEGATIVE (Neg); URINE PHENCYCLIDINE SCREEN NEGATIVE (Neg)
--- NOTE | 2021-09-28 02:33 | NUR ---
pt states wants to be transferred to another hospital. pt states does not trust staff as he states he heard nurses at nursing station talk about a "double dose". advised pt to stay. pt refuses all medications while in er but states he will wait for new rn upstairs to restart octreotide, ns with 20 meq kcl, protonix.
--- NOTE | 2021-09-28 02:38 | NUR ---
md lan advised of previous note.
--- NOTE | 2021-09-28 02:58 | NUR ---
pt stating wants to leave. pt not giving definitive reason as to why he wants to leave but states he refuses treatment and does not want to wait for room to be cleaned upstairs. called dr lan, and advised pt that leaving ama has risk of serious complications such as worsening bleeding, electrolyte imbalance up to and including . pt acknolwdged risks and decided to leave anyways. IVs removed and pt ambulated to lobby, no s/s of distress. pt states will call for a safe ride home once in lobby.
[2021-09-28] MEDS ORDERED: docusate sod 100mg capsule PO SCH (08:00)
[2021-09-28] MEDS ORDERED: multivitamins, therapeutics tablet PO SCH (08:00)
[2021-09-28] MEDS ORDERED: thiamine 100mg/ml 2ml inj. IV SCH (08:00)
[2021-09-28] MEDS ORDERED: thiamine inj. 200 MG in normal saline 100ml IV soln 100 ML IV SCH (08:00)
[2021-09-28] MEDS ORDERED: K and/or MAG REPLACEMENT MC SCH (08:00)
[2021-09-28] MEDS ORDERED: folic acid 1mg/0.2ml inj IV SCH (08:00)
[2021-09-28] MEDS ORDERED: OMEP-50 PO (13:42)
[2021-09-28] MEDS ORDERED: BENA10TA75 PO (13:42)
[2021-09-28] MEDS ORDERED: temazepam 15mg capsule PO PRN (21:00)
[2021-09-29] MEDS ORDERED: OMEP-50 PO (10:54)
[2021-09-29] MEDS ORDERED: MULT-1085 PO (10:56)
[2021-09-30] MEDS ORDERED: LORazepam 1 MG tablet PO PRN (00:20)
[2021-09-30] MEDS ORDERED: LORazepam 2 mg/ml vial IV PRN (00:20)
[2021-10-02] MEDS ORDERED: LORazepam 1 MG tablet PO PRN (00:20)
[2021-10-02] MEDS ORDERED: LORazepam 2 mg/ml vial IV PRN (00:20)
[2021-10-02] MEDS ORDERED: folic acid 1mg tablet PO SCH (08:00)
[2021-10-02] MEDS ORDERED: thiamine 100mg tablet PO SCH (08:00)
== END 2021-09-28 03:11 | disposition left against medical advice (07) | DRG 254 ==
LOC: ER 20:12 → UNDOADMIN 09-28 00:26 → ED HOLD 09-28 00:26 → UNDODISIN 09-28 03:11
PROVIDERS: ADMIT Family Medicine; ATTEND Family Medicine
DX: K92.1 Melena (principal); K85.20 Alcohol induced acute pancreatitis without necrosis or infection; D69.6 Thrombocytopenia, unspecified; E87.1 Hypo-osmolality and hyponatremia; K76.0 Fatty (change of) liver, not elsewhere classified; R74.01 Elevation of levels of liver transaminase levels; R00.0 Tachycardia, unspecified; Z53.29 Procedure and treatment not carried out because of patient's decision for other reasons; E87.6 Hypokalemia; F10.230 Alcohol dependence with withdrawal, uncomplicated; I10 Essential (primary) hypertension; F17.220 Nicotine dependence, chewing tobacco, uncomplicated; Z88.0 Allergy status to penicillin; Z71.6 Tobacco abuse counseling
CPT/HCPCS: 36415; 71045; 80053; 80305; 80320; 81001; 82140; 82272; 82948; 83036; 83605; 83690; 83735; 84100; 84132; 85008; 85025; 85610; 85730; 86885; 86900; 86901; 93005; 96365; 99285; C9113; G0378; J2354; J2405; J2560; J3480; J3490; J7030; J7050

== ENCOUNTER 2021-09-28 09:14 | Inpatient (IN) | payer MEDICAID, OTHER ==
[2021-09-27] MEDS: normal saline 1000ml 1,000 ML IV SCH (21:00)
[~2021-09-28] VITALS: Ht 182.9 cm; Wt 79.5 kg
[2021-09-28] VITALS (7 sets, daily range): BP systolic 120–139; BP diastolic 66–100
[~2021-09-28 09:14] MED LIST changes: +NO HOME MEDS
[2021-09-28] MEDS ORDERED: normal saline 1000ML IV soln IV ONE (09:20)
[2021-09-28 09:55] LABS: BASOPHILS % (AUTO) 0.3 % (0-1); EOSINOPHILS % (AUTO) 0.2 % (0-6); HEMATOCRIT 35.7 % (42.0-52.0); HEMOGLOBIN 12.7 g/dl (14.0-17.9); LYMPHOCYTES # (AUTO) 0.7 X10'3 (1.1-4.8); LYMPHOCYTES % (AUTO) 12.6 % (21-51); MEAN CORPUSCULAR HEMOGLOBIN 30.4 PG (27.0-31.0); MEAN CORPUSCULAR HGB CONC 35.5 g/dL (33.0-36.5); MEAN CORPUSCULAR VOLUME 85.5 FL (78-98); MEAN PLATELET VOLUME 8.3 FL (7.4-10.4); MONOCYTES # (AUTO) 0.7 X10'3 (0-0.9); MONOCYTES % (AUTO) 13.6 % (2-12); NEUTROPHILS % (AUTO) 73.3 % (42-75); PLATELET COUNT 109 X10'3 (140-440); RED BLOOD COUNT 4.17 X10'6 (4.70-6.10); RED CELL DISTRIBUTION WIDTH 13.5 % (11.5-14.5); WHITE BLOOD COUNT 5.5 X10'3 (4.5-11.0)
[2021-09-28] MEDS ORDERED: octreotide inj. 1,250 MCG in normal saline 250ml IV soln 243.75 ML IV ONE (10:00)
[2021-09-28 10:01] LABS: ALANINE AMINOTRANSFERASE 180 U/L (12-78); ALBUMIN 3.3 G/DL (3.4-5.0); ALBUMIN/GLOBULIN RATIO 0.9 (1.1-1.5); ALKALINE PHOSPHATASE 74 IU/L (46-116); ASPARTATE AMINO TRANSFERASE 223 U/L (10-37); BILIRUBIN,TOTAL 2.4 MG/DL (0.1-1.0); BLOOD UREA NITROGEN 18 MG/DL (7-18); BUN/CREATININE RATIO 19.4 (5.4-32.0); CALCIUM 8.9 MG/DL (8.5-10.1); CREATININE 0.93 MG/DL (0.60-1.10); ETHANOL < 0.010 GM/DL (0.0-0.010); GLUCOSE 111 MG/DL (70-104); LIPASE 971 U/L (73-393); TOTAL CARBON DIOXIDE 30.7 MMOL/L (24-32); TOTAL PROTEIN 7.1 G/DL (6.4-8.2); eGFR > 90 ML/MIN
[2021-09-28] MEDS ORDERED: CefTRIAXone 2gm/D5W 50ml BAG 50 ML IV ONE (10:10)
[2021-09-28] MEDS: pantoprazole 40MG/NS 100ML BAG 100 ML IV SCH ×3 (10:12→21:00)
[2021-09-28 10:52] LABS: LARGE PLATELETS FEW; PLATELET ESTIMATE DECREASED; TOTAL CELLS COUNTED 100; TOXIC GRANULATION 1+
[2021-09-28 10:53] LABS: ANISOCYTOSIS FEW; SMUDGE CELLS 1+
[2021-09-28] MEDS: folic acid 1mg tablet PO SCH (11:00)
[2021-09-28] MEDS ORDERED: magnesium Cl slow-release 64mg tablet PO PRN (11:00)
[2021-09-28] MEDS ORDERED: dextrose 50%-water 50ml dispensing syringe IV PRN (11:00)
[2021-09-28] MEDS ORDERED: ondansetron/PF 4mg/2ml inj IV PRN (11:00)
[2021-09-28] MEDS ORDERED: potassium Cl 20 mEq SR tablet PO PRN ×2 (11:00)
[2021-09-28] MEDS ORDERED: potassium CL 10mEq/100ml bag 100 ML IV PRN (11:00)
[2021-09-28] MEDS ORDERED: acetaminophen 325mg tablet PO PRN (11:00)
[2021-09-28] MEDS ORDERED: magnesium 2GM in 50ml NS 50 ML IV PRN (11:00)
[2021-09-28] MEDS ORDERED: magnesium 4gm in 100ml NS 100 ML IV PRN (11:00)
[2021-09-28 11:03] LABS: ANION GAP 7 (8-16); CHLORIDE 88 MMOL/L (99-107); POTASSIUM 3.7 MMOL/L (3.5-5.1); SODIUM 126 MMOL/L (135-145)
[2021-09-28] MEDS: folic acid 1mg/0.2ml inj IV SCH (11:24)
[2021-09-28] MEDS: normal saline 1000ml 1,000 ML IV SCH (11:25)
[2021-09-28] MEDS: thiamine 100mg tablet PO SCH ×2 (11:26→20:20)
[2021-09-28 12:06] LABS: MAGNESIUM 1.8 MG/DL (1.5-2.4); POTASSIUM 3.2 MMOL/L (3.5-5.1)
[2021-09-28] MEDS: thiamine 100mg/ml 2ml inj. IV SCH ×2 (13:23→21:00)
[2021-09-28] MEDS ORDERED: OMEP-50 PO (13:42)
[2021-09-28] MEDS ORDERED: BENA10TA75 PO (13:42)
[2021-09-28] MEDS: LORazepam 2 mg/ml vial IV PRN ×2 (14:01→20:21)
--- NOTE | 2021-09-28 14:09 | NUR ---
FOR ANY QUERIES CALL [facility] EX AT [phone],MOTHER WAYLON AT [phone],DAD LORRIE AT [phone].
[2021-09-28] MEDS ORDERED: MIDAZolam 1 MG/ML 5ML VIAL ONE (14:10)
[2021-09-28] MEDS ORDERED: fentaNYL/PF 50MCG/1 ML 2ML syringe ONE (14:10)
[2021-09-28] MEDS ORDERED: LIDOcaine Viscous 15ml cup ONE (14:10)
--- NOTE | 2021-09-28 19:00 | NUR ---
Pt is out of bed voided and urinating on himself and the floor, gait not steady, pt attempted to put his pants on. Clean pt and make bad and placed pt in bed . Bed alarm in use. Pt instructed to call for assistance. urinal, call light place within reach with instruction to use the call light when needed to get out of bed. IV medication started
[2021-09-28] MEDS ORDERED: K and/or MAG REPLACEMENT MC SCH (20:00)
[2021-09-29] MEDS: pantoprazole 40MG/NS 100ML BAG 100 ML IV SCH ×3 (01:41→05:58)
[2021-09-29 02:00] VITALS: BP 123/77
--- NOTE | 2021-09-29 06:00 | NUR ---
Pt is AAOx2 sitting up in bed and asking question about his discharge planning. Pt was informed that his mother called about his care. IV fluid infusing well. No discomfort noted.
[2021-09-29 06:17] LABS: BASOPHILS % (AUTO) 0.5 % (0-1); HEMATOCRIT 32.1 % (42.0-52.0); HEMOGLOBIN 11.1 g/dl (14.0-17.9); LYMPHOCYTES # (AUTO) 0.8 X10'3 (1.1-4.8); MEAN CORPUSCULAR HEMOGLOBIN 30.4 PG (27.0-31.0); MEAN CORPUSCULAR HGB CONC 34.6 g/dL (33.0-36.5); MEAN PLATELET VOLUME 7.9 FL (7.4-10.4); MONOCYTES # (AUTO) 0.6 X10'3 (0-0.9); MONOCYTES % (AUTO) 13.4 % (2-12); NEUTROPHILS # (AUTO) 2.7 X10'3 (1.8-7.7); NEUTROPHILS % (AUTO) 65.1 % (42-75); PLATELET COUNT 120 X10'3 (140-440); RED BLOOD COUNT 3.65 X10'6 (4.70-6.10); RED CELL DISTRIBUTION WIDTH 13.8 % (11.5-14.5); WHITE BLOOD COUNT 4.2 X10'3 (4.5-11.0)
[2021-09-29 06:26] LABS: ALBUMIN 2.8 G/DL (3.4-5.0); ANION GAP 7 (8-16); BLOOD UREA NITROGEN 10 MG/DL (7-18); BUN/CREATININE RATIO 12.8 (5.4-32.0); CALCIUM 8.4 MG/DL (8.5-10.1); CHLORIDE 99 MMOL/L (99-107); CREATININE 0.78 MG/DL (0.60-1.10); GLUCOSE 72 MG/DL (70-104); POTASSIUM 3.6 MMOL/L (3.5-5.1); SODIUM 135 MMOL/L (135-145); eGFR > 90 ML/MIN
[2021-09-29 06:30] VITALS: BP 147/103
[2021-09-29] MEDS: folic acid 1mg tablet PO SCH (07:23)
[2021-09-29 07:40] LABS: NUCLEATED RED BLOOD CELLS 1 /100WBC (0-0); PLATELET ESTIMATE DECREASED; TOTAL CELLS COUNTED 100
[2021-09-29 07:41] LABS: POLYCHROMASIA FEW; SMUDGE CELLS FEW
[2021-09-29] MEDS ORDERED: lisinopril 10 MG tablet PO SCH (08:00)
[2021-09-29] MEDS: folic acid 1mg/0.2ml inj IV SCH (08:00)
[2021-09-29] MEDS: thiamine 100mg/ml 2ml inj. IV SCH (08:00)
[2021-09-29] MEDS ORDERED: OMEP-50 PO (10:54)
[2021-09-29] MEDS ORDERED: MULT-1085 PO (10:56)
[2021-09-29 11:00] VITALS: BP 131/94
--- NOTE | 2021-09-29 12:28 | NUR ---
Discharge instructions given to patient, patient verbalized understanding of all instructions given to him. Patient was advised to cut down on drinking alcohol and to make sure he follow up with his PCP within 1 week. Peripheral IV catheter removed, tip intact. Instructed patient to ensure he has all his belongings with him before leaving the hospital. Patient's dad at bedside and will be driving home with the patient
[2021-09-30] MEDS ORDERED: LORazepam 1 MG tablet PO PRN (13:50)
[2021-09-30] MEDS ORDERED: LORazepam 2 mg/ml vial IV PRN (13:50)
[2021-10-02] MEDS ORDERED: LORazepam 2 mg/ml vial IV PRN (11:00)
[2021-10-02] MEDS ORDERED: LORazepam 1 MG tablet PO PRN (11:00)
== END 2021-09-29 12:50 | disposition home or self-care (01) | DRG 241 ==
LOC: ER 09:14 → ED HOLD 11:04 → PCU 3S 18:01
PROVIDERS: ADMIT Internal Medicine; ATTEND Internal Medicine
PROC: 0DB58ZX Excision of Esophagus, Via Natural or Artificial Opening Endoscopic, Diagnostic (ICD-10-PCS; principal; 2021-09-28)
DX: K29.71 Gastritis, unspecified, with bleeding (principal); E87.1 Hypo-osmolality and hyponatremia; R74.01 Elevation of levels of liver transaminase levels; K20.90 Esophagitis, unspecified without bleeding; F17.220 Nicotine dependence, chewing tobacco, uncomplicated; F10.239 Alcohol dependence with withdrawal, unspecified; I10 Essential (primary) hypertension; K29.20 Alcoholic gastritis without bleeding; Z88.0 Allergy status to penicillin; Z79.899 Other long term (current) drug therapy; Z71.41 Alcohol abuse counseling and surveillance of alcoholic
CPT/HCPCS: 36415; 43239; 71045; 80048; 80053; 80320; 82948; 83690; 83735; 84132; 85007; 85025; 86885; 86900; 86901; 93005; 96374; 99152; 99285; A4620; C9113; G0378; J0696; J2060; J2250; J2354; J3010; J3411; J3490; J7030; J7040; J7050

== ENCOUNTER 2022-09-15 07:34 | Emergency (ER) | payer MEDICAID ==
[~2022-09-15] VITALS: Ht 182.9 cm; Wt 81.8 kg
[~2022-09-15 07:34] MED LIST changes: -HYDR50TA65 PO; -MEP5T PO; +MULT-1085 PO; -MULT-25 PO; -NO HOME MEDS; -OMEP-50 PO; +OMEP20CA16 PO; -folic acid tablet PO; -thiamine tablet PO
[2022-09-15 07:44] VITALS: BP 136/109
[2022-09-15] MEDS ORDERED: normal saline 1000ML IV soln IV ONE (08:50)
[2022-09-15 10:19] LABS: CLARITY,URINE SLIGHTLY CLOUDY (Clear); COLOR,URINE YELLOW (Yellow); GLUCOSE, URINE 100 mg/dl (Neg); KETONES,URINE NEGATIVE (Neg); LEUKOCYTE ESTERASE ,URINE NEGATIVE (Neg); NITRITES, URINE NEGATIVE (Neg); OCCULT BLOOD,URINE LARGE (Neg); PROTEIN,URINE 100 mg/dl (Neg)
[2022-09-15 10:21] LABS: BASOPHILS % (AUTO) 0.1 % (0-1); EOSINOPHILS % (AUTO) 0.1 % (0-6); HEMATOCRIT 42.4 % (42.0-52.0); LYMPHOCYTES # (AUTO) 0.6 X10'3 (1.1-4.8); LYMPHOCYTES % (AUTO) 7.5 % (21-51); MEAN CORPUSCULAR HEMOGLOBIN 30.5 PG (27.0-31.0); MEAN CORPUSCULAR HGB CONC 35.3 g/dL (33.0-36.5); MEAN CORPUSCULAR VOLUME 86.6 FL (78-98); MEAN PLATELET VOLUME 7.9 FL (7.4-10.4); MONOCYTES # (AUTO) 0.6 X10'3 (0-0.9); MONOCYTES % (AUTO) 7.9 % (2-12); NEUTROPHILS # (AUTO) 6.3 X10'3 (1.8-7.7); NEUTROPHILS % (AUTO) 84.4 % (42-75); PLATELET COUNT 110 X10'3 (140-440); RED CELL DISTRIBUTION WIDTH 13.9 % (11.5-14.5); WHITE BLOOD COUNT 7.5 X10'3 (4.5-11.0)
[2022-09-15 10:27] LABS: UA COLLECTION TYPE VOIDED; WBC,URINE 0-4 /HPF (0-4)
[2022-09-15 10:28] LABS: BACTERIA,URINE NONE SEEN /HPF (Neg); MUCUS STRANDS NONE SEEN /LPF (Neg); RBC,URINE 0-2 /HPF (0-2); SQUAMOUS EPITHELIAL CELL,UR NONE SEEN /LPF (FEW)
[2022-09-15 10:31] LABS: URINE AMPHETAMINE SCREEN NEGATIVE (Neg); URINE BARBITUATE SCREEN NEGATIVE (Neg); URINE BENZODIAZEPINES SCREEN POSITIVE (Neg); URINE CANNABINOID SCREEN NEGATIVE (Neg); URINE COCAINE SCREEN NEGATIVE (Neg); URINE METHADONE SCREEN NEGATIVE (Neg); URINE OPIATE SCREEN NEGATIVE (Neg); URINE PHENCYCLIDINE SCREEN NEGATIVE (Neg)
[2022-09-15 10:33] LABS: ALANINE AMINOTRANSFERASE 412 U/L (12-78); ALBUMIN 3.3 G/DL (3.4-5.0); ALBUMIN/GLOBULIN RATIO 0.9 (1.1-1.5); ALKALINE PHOSPHATASE 109 IU/L (46-116); ANION GAP 5 (8-16); ASPARTATE AMINO TRANSFERASE 477 U/L (10-37); BILIRUBIN,TOTAL 1.9 MG/DL (0.1-1.0); BLOOD UREA NITROGEN 19 MG/DL (7-18); BUN/CREATININE RATIO 19.4 (5.4-32.0); CALCIUM 8.6 MG/DL (8.5-10.1); CHLORIDE 101 MMOL/L (99-107); CREATININE 0.98 MG/DL (0.60-1.10); GLUCOSE 106 MG/DL (70-104); POTASSIUM 3.3 MMOL/L (3.5-5.1); SODIUM 138 MMOL/L (135-145); TOTAL CARBON DIOXIDE 32.2 MMOL/L (24-32); eGFR 85 ML/MIN
[2022-09-15 10:42] LABS: ETHANOL < 0.010 GM/DL (0.0-0.010)
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
--- NOTE | 2022-09-15 13:45 | NUR ---
Pt brought to ER[facility] from main ER and placed in bed 25.
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
--- NOTE | 2022-09-15 15:35 | NUR ---
Pt met with [facility] clinician and will remain on a 5150 hold.
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
--- NOTE | 2022-09-15 17:50 | NUR ---
Received call via security from [facility] stating they found Pt and will be taking him to [facility]
== END 2022-09-15 18:07 | disposition left against medical advice (07) ==
LOC: ER 07:34
DX: F19.959 Other psychoactive substance use, unspecified with psychoactive substance-induced psychotic disorder, unspecified (principal); Z20.822 Contact with and (suspected) exposure to COVID-19; F41.9 Anxiety disorder, unspecified; I10 Essential (primary) hypertension; Z72.89 Other problems related to lifestyle; Z88.0 Allergy status to penicillin; Z79.899 Other long term (current) drug therapy
CPT/HCPCS: 36415; 80053; 80305; 80320; 81001; 84443; 85025; 87811; 93005; 96360; 96361; 99285; J7030

== ENCOUNTER 2025-10-06 11:46 | Emergency (ER) | payer MEDICAID ==
[~2025-10-06] VITALS: Ht 182.9 cm; Wt 91.7 kg
[2025-10-06 11:54] VITALS: BP 175/111; PULSE 96; O2SAT 98
[2025-10-06 11:57] VITALS: RESP 18
[2025-10-06 12:35] LABS: LEUKOCYTE ESTERASE ,URINE NEGATIVE (Neg); NITRITES, URINE NEGATIVE (Neg); OCCULT BLOOD,URINE MODERATE (Neg)
[2025-10-06 12:38] LABS: UA COLLECTION TYPE NON-SPECIFIED
--- NOTE | 2025-10-06 12:39 | Physician Documentation ---
History of Present Illness ~ Chief Complaint: Abdominal Pain Stated Complaint: BLOOD IN STOOL Time Seen by MD: 12:13 Primary Medical Doctor: THERON Mode of Arrival: POV HPI This is a 40-year-old male who presents with concern for bright red stools onset this morning, patient reports that he has had some intermittent lower abdominal cramping starting last night which is relieved after bowel movements. Of note patient reports he ate a large amount of red colored food including raspberry jelly last night. Bowel movements today reported as hard. Patient reports no fever, chills, other other systemic symptoms. Patient reports no other acute symptoms or concerns including no nausea vomiting or diarrhea. Medication Reconciliation Allergies: Coded Allergies: Penicillins (Verified Allergy, Mild, CHILDHOOD ALLERGY, HE THINKS IT MIGHT HAVE BEEN RASH, 10/06/25) Scheduled Benazepril HCl (Benazepril HCl), 1 TAB PO DAILY, (Reported) Multivitamin (Multi Vitamin Daily), 1 TAB PO DAILY Omeprazole (Omeprazole), 2 CAP PO BID Past Medical History Past Medical History: Hypertension, *GI/HEPATOBILIARY* Past Surgical History: noncontributory Patient History: Patient reports no known family medical history. Alcohol Use: Heavy Drug Use: none Lives In: Home Review of Systems ROS As stated above in the HPI, otherwise all systems are reviewed and negative. Physical Exam Vital Signs: Temperature: 98.2, Source: Temporal, Heart Rate: 96, Respiratory Rate: 18, BP: 175/111, Pulse Oximetry: 98, Weight: 91.700 Oxygen Flow Rate: 0 Physical Exam VITALS: Reviewed and as above. GENERAL: Alert, nontoxic appearing, no apparent distress. RESPIRATORY: No increased work of breathing, no respiratory distress, speaking in full clear sentences, clear lung sounds in all valero CV: Regular rate and rhythm no murmur BACK: No CVA tenderness GI: Soft, nontender, no rebound, no guarding, bowel sounds present, no abdominal masses palpated SKIN: No abdominal ecchymosis or erythema Progress Results/Orders Results/Orders Vital Signs 10/06/25 10/06/25 10/06/25 11:54 11:57 12:43 Temp 98.2 98.2 Pulse 96 Resp 18 18 B/P (MAP) 175/111 Pulse Ox 98 O2 Flow Rate 0 Laboratory Tests Test 10/06/25 12:15 Urine Specimen Description Non-specified Urine Color Straw Urine Clarity Clear Urine pH 6.0 Urine Specific [place] <=1.005 Urine Protein 100 H Urine Glucose (UA) Negative Urine Ketones Negative Urine Occult Blood Moderate H Urine Nitrite Negative Urine Bilirubin Negative Urine Urobilinogen 0.2 Urine Leukocyte Esterase Negative Urine RBC 20-50 Urine WBC None seen Urine Squamous Epithelial Cells Few Urine Bacteria Few Urine Culture Indicated Not ind Volume Urine Centrifuged 10 ml Urine Comment Medical Decision Making Additional information obtaine: N/A Findings This 40-year-old male presented with concern for red colored stools and intermittent lower abdominal cramping described as light which resolve with bowel movement, of note patient reported eating a large amount of red colored food last night, physical exam was benign with no abdominal tenderness on palpation. With shared decision-making, labs and further workup deferred as a bleeding hemorrhoid or red food intake the night before are likely cause of patient's symptoms, patient will employ a watchful waiting strategy and will return should symptoms not resolve in the next 1-2 days or if symptoms worsen. Patient given reassurance and careful and detailed return to care precautions which he and his partner verbalized understanding of. Patient is well-appearing and hemodynamically stable appropriate for outpatient follow up, home care instructions and follow up instructions discussed with the patient who verbalized understanding. Diff Dx GI Bleed:Consideration: Include: AE fistula, Bleeding diathesis, Carcinoma, Diverticulosis, Diverticulitis, Gastritis, Gastroenteritis, Inflammatory BD, Other (Hemorrhoid, anal fissure, red food intake) Departure Time of Disposition: 12:37 Disposition: 01 HOME / SELF CARE / HOMELESS Impression: Primary Impression: Bright red stool Additional Impression: Abdominal cramping Condition: Improved Discharge Instructions: Abdominal Pain (Nonspecific) Additional Instructions: As we discussed I suspect you are stools were read due to the food you ate last night though you may also have a hemorrhoid causing the bright red color to your stool, if you continue to have red stools please follow up here or your primary care provider. Additionally I do recommend you receive a colonoscopy in the next few years as you are at the age this is recommended. Please follow up with your primary care provider in the next few days. Please return to the emergency department for any new or worsening concerning symptoms including but not limited to worsening pain, continued red colored stools, or if you develop a fever. Please increase your fiber intake and stay well hydrated, I recommend adding a stool softener daily as well if you continue to have hard stools. Referrals: NO PRIMARY CARE PROVIDER (PCP) Education Educated: Patient Educated regarding: diagnosis, treatment, prognosis, need for follow up Signature Scribe Signature: No scribe Attestation: The note accurately reflects work and decisions made by me.EDITH Cope 10/07/25 10:25 ROMMEL NARVAEZ Oct 06, 2025 12:39
[2025-10-06 12:43] VITALS: TEMP 98.2
[2025-10-06 12:47] LABS: SQUAMOUS EPITHELIAL CELL,UR FEW /LPF (FEW)
== END 2025-10-06 12:45 | disposition home or self-care (01) ==
LOC: ER 11:47
DX: K62.5 Hemorrhage of anus and rectum (principal); R10.9 Unspecified abdominal pain; I10 Essential (primary) hypertension; F10.90 Alcohol use, unspecified, uncomplicated; Z88.0 Allergy status to penicillin; Z79.899 Other long term (current) drug therapy; Y90.9 Presence of alcohol in blood, level not specified
CPT/HCPCS: 81001; 99283

== ENCOUNTER 2025-10-06 22:11 | Emergency (ER) | payer MEDICAID ==
[~2025-10-06] VITALS: Ht 182.9 cm; Wt 90.9 kg
--- NOTE | 2025-10-06 23:58 | Physician Documentation ---
History of Present Illness ~ Chief Complaint: Bloody Stools Stated Complaint: RECHECK Time Seen by MD: 23:55 Primary Medical Doctor: THERON MICHELLE 40-year-old male who presents with blood after going to the bathroom. Per chart review, the patient was seen here earlier today for red stool. It was felt that this could be related to eating food with a lot of red food coloring. No laboratory testing was done. He returns tonight, with another episode of bloody stool. He tells me that he did have some abdominal pain earlier, in his lower abdomen. He had multiple bowel movements. He had a couple of episodes where there some right rib blood in the stool. He had 1 episode where it looked like there was some red blood around a normal formed stool. Currently he denies any abdominal pain or other symptoms. No dizziness or fainting. No other bleeding. No rectal pain. No history of hemorrhoids Medication Reconciliation Allergies: Coded Allergies: Penicillins (Verified Allergy, Mild, CHILDHOOD ALLERGY, HE THINKS IT MIGHT HAVE BEEN RASH, 10/06/25) Scheduled Benazepril HCl (Benazepril HCl), 1 TAB PO DAILY, (Reported) Multivitamin (Multi Vitamin Daily), 1 TAB PO DAILY Omeprazole (Omeprazole), 2 CAP PO BID Past Medical History Past Medical History: Hypertension, *GI/HEPATOBILIARY* Past Surgical History: noncontributory Patient History: Patient reports no known family medical history. Alcohol Use: Heavy Drug Use: none Lives In: Home Review of Systems Constitutional: Denies: fever Gastrointestinal: Reports: rectal bleeding; Denies: abdominal pain Physical Exam Vital Signs: Heart Rate: 98, Respiratory Rate: 16, BP: 150/103, Pulse Oximetry: 96, Weight: 90.910 Physical Exam General: This is a very anxious appearing young man, otherwise appears healthy and well HEENT: Atraumatic, oropharynx is moist Heart: Mild tachycardic, appears regular Lungs: normal work of breathing, normal oxygen saturation on room air Abdomen: Soft, nondistended, nontender all quadrants including in the lower abdomen, no rebound or guarding : Declined by the patient Skin: Does not appear pale Neuro: Alert and oriented Psychiatric: Quite anxious about his condition Progress Results/Orders Results/Orders Completed Orders - SB TODD MD Cbc/Diff (10/07/25 00:28) CMP (10/07/25 00:28) Pt Inr (10/07/25 00:28) Vital Signs 10/06/25 10/07/25 10/07/25 22:40 00:42 00:47 Pulse 98 95 Resp 16 16 16 B/P (MAP) 150/103 143/112 (122) Pulse Ox 96 95 O2 Flow Rate 0 Laboratory Tests Test 10/07/25 00:35 White Blood Count 14.3 H Red Blood Count 5.53 Hemoglobin 16.1 Hematocrit 47.1 Mean Corpuscular Volume 85.3 Mean Corpuscular Hemoglobin 29.2 Mean Corpuscular Hemoglobin Concent 34.2 Red Cell Distribution Width 13.3 Platelet Count 362 Mean Platelet Volume 7.6 Neutrophils (%) (Auto) 81.9 H Lymphocytes (%) (Auto) 11.4 L Monocytes (%) (Auto) 5.8 Eosinophils (%) (Auto) 0.6 Basophils (%) (Auto) 0.3 Neutrophils # (Auto) 11.7 H Lymphocytes # (Auto) 1.6 Monocytes # (Auto) 0.8 Eosinophils # (Auto) 0.1 Basophils # (Auto) 0.0 CBC Comment Prothrombin Time 11.5 INR International Normalized Ratio 1.1 Coagulation Comments Sodium Level 141 Potassium Level 4.2 Chloride Level 105 Carbon Dioxide Level 29.2 Anion Gap 7 L Blood Urea Nitrogen 17 Creatinine 1.03 Estimated GFR/1.73 m2 79 BUN/Creatinine Ratio 16.5 Glucose Level 104 Calcium Level 9.3 Total Bilirubin 1.2 H Aspartate Amino Transf (AST/SGOT) 25 Alanine Aminotransferase (ALT/SGPT) 42 Alkaline Phosphatase 88 Total Protein 8.4 H Albumin 3.9 Globulin 4.5 H Albumin/Globulin Ratio 0.9 L Chemistry Comments Medical Decision Making Additional information obtaine: family Findings Family texted photos of his stool Diff Dx GI Bleed:Consideration: Include: Bleeding diathesis, Blood loss anemia Diff Dx Pain:Considerations: Include: GI hemorrhage Diff Dx N/V/D:Considerations: Include: GI bleed Diff Dx Rectal:Considerations: Include: Ulcer Additional Comments The patient presents with concern for blood in his stool. He is very well- appearing, has a benign abdominal exam, has no clinical findings to suggest acute anemia. He declined a rectal exam. He showed me a photograph of the toilet which shows a normal-appearing stool with blood around it. Overall this seems most consistent with bleeding from an internal hemorrhoid or other non dangerous cause. After shared decision-making conversation we did proceed with blood testing given his severe anxiety regarding this. His blood counts are normal, no acute anemia. He was discharged home with home care instructions including possible hemorrhoid treatments, return precautions, and if he continues to have bleeding he will discuss this further his primary care doctor for referral to GI for colonoscopy. Departure Impression: Primary Impression: Rectal bleeding Referrals: NO PRIMARY CARE PROVIDER (PCP) Signature Scribe Signature: ramone Attestation: SB Carrera MD Oct 06, 2025 23:58
[2025-10-07 00:47] VITALS: BP 143/112; PULSE 95; RESP 16; O2SAT 95
[2025-10-07 00:49] LABS: MEAN PLATELET VOLUME 7.6 FL (7.4-10.4); RED CELL DISTRIBUTION WIDTH 13.3 % (11.5-14.5)
[2025-10-07 01:01] LABS: INR 1.1 INR
[2025-10-07 01:08] LABS: CREATININE 1.03 MG/DL (0.60-1.10); TOTAL CARBON DIOXIDE 29.2 MMOL/L (24-32); eCRCL 103 ML/MIN; eGFR 79 ML/MIN
== END 2025-10-07 01:44 | disposition home or self-care (01) ==
LOC: ER 22:11
DX: K62.5 Hemorrhage of anus and rectum (principal); I10 Essential (primary) hypertension; Z88.0 Allergy status to penicillin; Z79.899 Other long term (current) drug therapy
CPT/HCPCS: 36415; 80053; 85025; 85610; 99283